=== PATIENT | female | born 1960 | race Two or more races ===

== ENCOUNTER 2023-05-27 09:21 | Outpatient (AMB) | payer OTHER, SELFPAY ==
[2023-05-27 09:34] VITALS: BP 127/98; PULSE 73; TEMP 36.5; O2SAT 96; BMI 27.3
--- NOTE | 2023-05-27 09:34 | A.OFFVIS_ITS ---
Intake Vital Signs 05/27/23 09:34 Height 5 ft 4 in Weight 159 lb 2.78 oz BMI 27.3 BP 127/98 H Blood Pressure Location Rt brachial Position Sitting Pulse 73 Pulse Source Pulse Oximeter Temp 97.7 F Temp Source Temporal Artery Scan Pulse Oximetry (%) 96 Oxygen Delivery Method Room Air Intake Visit Reasons: Hydrogenation Still Operator Required: No Allergies No Known Allergies [No Known Allergies*] Allergy (Unverified 05/27/23 09:38) Medication List - Last Reconciled 05/27/23 by Kristie Santos RN albuterol sulfate mg inhalation Q6H PRN bismuth subsalicylate (Stomach Relief) 0 tabs PO dexamethasone 8 mg PO BID docusate sodium 100 mg PO BID doxycycline monohydrate 100 mg PO BID fexofenadine 180 mg PO DAILY fluticasone propionate 50 mcg/actuation sprays intranasal folic acid 1 mg PO DAILY metronidazole 125 mg PO TID neomycin-polymyxin B-dexameth 3.5 mg/g-10,000 unit/g-0.1 % ophthalmic (eye) BEDTIME omeprazole 20 mg PO DAILY omeprazole 40 mg PO BID osimertinib (Tagrisso) 0 mg PO oxycodone 10 - 20 mg PO Q4H PRN prednisone 50 mg PO DAILY pregabalin 75 mg PO BID prochlorperazine maleate 10 mg PO Q6H PRN zolpidem 5 mg PO BEDTIME PRN HPI HPI Comments History of Present Illness Details The patient presents today with her daughter for evaluation of widespread pains. I had seen her at [facility] more than 3 or 4 years ago. She had also seen Dr. Tanner at [facility] before me. We were treating her for some fibromyalgia and cervical osteoarthritis. As far back as 2018 she was on twice a day 5 mg Percocet, Flexeril and nabumetone. She reports continued widespread pains involving muscles, bones and joints. She says the ankles are occasionally swollen. She has been labeled as having gout and is on some low-dose allopurinol, 100 mg daily. It is unclear whether that really helped her ankle pain and foot pain. The She describes her skin in the legs is feeling like someone is cutting it. In the past she had been on Cymbalta as well but that was apparently discontinued. In [place] of 2021 she underwent a left upper lobectomy for adenocarcinoma of the lung. She says since then she has been on osimeretinib. Recently that was held. The patient says it was held because it was causing a skin rash but the daughter thinks it was because they thought it might be causing her widespread pain. Her chart lists multiple medications that she does not recognize including pregabalin, omeprazole, doxycycline, dexamethasone, and pregabalin. She seems to recall being on gabapentin but it made her too groggy. It is unclear what happened to her antidepressant treatment in the past. [facility] Medical History Anxiety and depression Cervical spinal cord compression Fibromyalgia Surgical History Hx of abdominal hysterectomy Hx of breast implant Family History Brother Gout Arthritis Sister Arthritis Maternal Grandfather Family history of brain cancer Maternal Grandmother Family history of stomach cancer Other Family history of breast cancer Social History Alcohol intake: current Alcohol intake frequency: holidays/special occasions only Patient Tobacco Use Status: Never used Tobacco Review of Systems Const Details: Low energy, she describes days when she really gets at of bed because of fatigue and pain. Negative for appetite change, weight change, fever, chills, malaise Eyes Details: Negative for vision change, dry eyes,headaches and dizziness ENT Details: Negative for hearing change, tinnitus, oral ulcer, nose bleeds and oral dryness. Card Details: Intermittent ankle and foot swelling. Negative chest pain, palpitations and syncope Resp Details: Negative for SOB, cough and wheezing GI Details: Negative indigestion/heartburn, nausea, abdominal pain, bowel changes, diarrhea, constipation and bloody stool. Skin/Breast Details: Itchy rash on the upper arms; she thinks it might have been present for a year or 2.. She is putting something topical on the area but I am not sure what it is. She does see Dermatology occasionally for this. Negative for itching, rash, hives, Raynaud's symptoms, sun sensitivity, and skin cancer Neuro Details: She thinks there may be some numbness in the feet. She tends to fall a lot she says. She was told to use a cane but usually avoids it. She describes periods of feeling confused and groggy. In the past she thought that might be related to her taking gabapentin. She thinks she stopped it at this point. Negative for epilepsy, palsy, stroke, changes in speech, tingling Psych Details: Concerned about her ongoing pain. Admits to some anxiety. Endo Details: Negative for polyuria and polydypsia Bayron/Lymph Details: Negative for excessive bruising or bleeding. Physical Exam Vital Signs: Last Vital Signs Temp 97.7 F 05/27/23 09:34 Pulse 73 05/27/23 09:34 BP 127/98 H 05/27/23 09:34 Pulse Ox 96 05/27/23 09:34 Oxygen Delivery Method Room Air 05/27/23 09:34 BMI result Body Mass Index 27.3 APPEARANCE: Patient in no acute distress EYES no redness, pupils equal and reactive to light, eyelids normal. No temporal artery tenderness, redness or swelling. EARS: External ear normal, canal clear and tympanic membrane normal. NOSE/SINUS: Airflow through both nares, no nasal discharge, no bleeding THROAT: Oral mucosa moist, no ulcerations NECK: No thyromegaly or masses, no adenopathy, trachea midline. HEART: Regulrar rhythm, S1-S2 heard, no murmurs, rubs or gallops. LUNG: Clear to percussion and auscultation ABD: Normal bowel sounds, no organomegaly, masses or tenderness. EXTREMITIES: Trace ankle edema. No calf tenderness, normal peripheral pulses. NEURO: Oriented and alert x3. No focal weakness. Reflexes symmetric. She has a very slow unsteady gait.. SKIN: Some thickening and irritation of the skin in the upper arm regions. I do not see skin lesions elsewhere. No objective signs of Raynaud's phenomena. JOINT EXAM:.?? Cervical Spine:.? Full range of motion with pain at the extremes of normal range of motion. There is [id number] cervical muscle tenderness. Thoracic Spine:.? No scoliosis.? No tenderness on palpation. Lumbar Spine:.? Alignment normal.? Pain with flexion at 60 degrees with spinal and paraspinal muscle tenderness. Chest Wall:.? No tenderness, swelling, increased warmth or erythema. Hands:.? Normal pain-free range of motion with diffuse tenderness across the fingers, palm and dorsum of the hands. There is some slight bony enlargement at the 2nd, 3rd, and 5th PIP on the right and the 1st and 5th PIP on the left. Those areas are not any more tender than the interphalangeal spaces or there is no enlargement redness or swelling. There is no thenar atrophy or sensory loss.. Wrists:.? Mild pain with 75 degrees flexion or extension. There is some mild dorsal tenderness without for swelling, increased warmth or erythema. Elbows:. Normal pain-free range of motion without tenderness, swelling, increased warmth or erythema. Shoulders:.?? Mild pain with abduction 120 degrees or with attempts at internal or external rotation. Mild anterior, superior, and some subacromial tenderness. No adenopathy. No weakness, swelling, increased warmth or erythema. Hips:.? Full range of motion with some lumbar pain with extremes of normal range of motion. No groin pain with motion. Hip bursa:.? No tenderness. Knees:.??Mild pain with more than 45 degrees flexion extension. There is mild patellofemoral crepitus rather diffuse anterior, lateral, and medial tenderness. No redness or effusion. No crepitus. Ankles:.? Normal pain-free range of motion without tenderness, swelling, increased warmth or erythema. Feet:.? Normal pain-free range of motion with diffuse tenderness over the instep and MTP joints. There may be some mild bony enlargement at the 1st MTP joints but no soft tissue swelling, increased warmth or erythema. Tender points: Mild to moderate tenderness to digital palpation at the occiput, trapezius, second rib, lateral epicondyle, knees, greater trochanter and gluteal area bilaterally. ? Results Reviewed Results Reviewed: Lab work from [facility]: November 2022: ESR 6, uric acid 6.8 04/13/2023: Hemoglobin 13.8, white count 7.2, creatinine 0.84, transaminases normal, 25- hydroxyvitamin D 23 [facility] Result Report Patient: Ny Gonsales Date of Service: 11/10/22 ? ? Patient Gender: Female Ordering Provider: Jose Moses : 1960 ? ? ? Final X-RAY EXAM OF LOWER SPINE WITH OBLIQUES Exam Date: 11/10/2022 12:07 PM Ordering Diagnosis: Chronic bilateral low back pain with bilateral sciatica A ? Lumbosacral spine, 4 views. History low back pain. ? Compared with previous examination from 06/29/2020. There are discogenic degenerative changes at T12-L1 level which appear to be stable. There are small discogenic spurs at L3-4 and L4-5 levels. There are hypertrophic changes in the facet joints from L3-4 to L5-S1. No fractures, dislocations or destructive lesions. Incidental findings of constipation. ? CONCLUSIONS: Stable multilevel bony and discs degenerative changes. Constipation. ? Reading Radiologist: Electronically signed by: Narda Rosales MD [facility] Imaging Result Report Patient: Ny Gonsales Date of Service: 06/29/20 ? ? Patient Gender: Female Ordering Provider: Edmond Rider : 1960 ? ? ? Final X-RAY EXAM OF NECK SPINE, 4+ VIEWS Exam Date: 06/29/2020 12:46 PM Ordering Diagnosis: Numbness and tingling of left upper and lower extremity ? History: Numbness and tingling of the upper extremities. Chronic neck pain. ? Cervical spine, 4 views: There has been an anterior fusion at C6-7 with anterior plate and screw fixation and complete ankylosis of the disc space. There is no evidence of complication. There is mild disc degeneration at C4-C6. There is uncal joint spurring at C4-5 bilaterally with moderate neuroforaminal narrowing right greater than left. There is milder narrowing at C6-7 on the right. Alignment is normal. The facets are intact. Soft tissues are unremarkable. ? IMPRESSION IMPRESSION: Postoperative and degenerative changes as above. ? Reading Radiologist: Electronically signed by: José Miguel Thornton MD Assessment & Plan Assessment & Plan (1) Fibromyalgia: Code(s): M79.7 - Fibromyalgia (2) Cervical osteoarthritis: Code(s): M47.812 - Spondylosis without myelopathy or radiculopathy, cervical region (3) Osteoarthritis of lumbar spine: Code(s): M47.816 - Spondylosis without myelopathy or radiculopathy, lumbar region Plan The patient has a long history of widespread musculoskeletal pain. Once again on exam I do not see signs of an active inflammatory arthritis. She is very deconditioned and has much fatigue. She has a nonspecific skin rash on the arms that looks relatively noninflammatory but she has been on probably some topical treatment if not systemic steroids for that. I told her I thought her pains were predominantly from fibromyalgia. She was not too accepting of that diagnosis. She wants to know if there is something else going on. I told her the chronicity of her pain and lack of inflammatory findings on exam would be against it being an inflammatory condition. There are some mild changes of osteoarthritis in the cervical and lumbar spine regions which don't explain her widespread pain. Overall she seems to have psychomotor retardation and might do better with antidepressant therapy but I think that needs to be administered through her primary doctor who may have better knowledge of her medication list to avoid potential interactions. It sounds as if she did try gabapentin in the past but it was too sedating so I do not think that is an option. Markell is listed on her list year but she does not recall taking it or having received it. It is unclear whether she had any response to prednisone or dexamethasone which is listed on her medication list because she does not know exactly when she took them. She questions whether an increase in dose in the oxycodone might be helpful for her as previous dose increases usually were. I told her that we do not usually treat fibromyalgia with narcotics anymore as it does not seem to be effective as patients developed rapid tolerance to opiods. Her graphic description of her lower extremity pains makes me wonder if she as a neuropathy. She was seeing neurology years ago but I do not have their notes. I will send a copy of her visit today to her treating oncologist and primary doctor. Today's visit took 34 minutes. Orders: Referrals Neurology Referral M79.7 - Fibromyalgia Coding Level of Care Code Est Pt Level 4 (00476) Diagnoses Fibromyalgia M79.7 Cervical osteoarthritis M47.812 Osteoarthritis of lumbar spine M47.816
== END 2023-05-27 10:30 | disposition home or self-care (01) ==
PROVIDERS: Visit Provider Internal Medicine Rheumatology
DX: M79.7 Fibromyalgia (principal); M47.812 Spondylosis without myelopathy or radiculopathy, cervical region; M47.816 Spondylosis without myelopathy or radiculopathy, lumbar region
CPT/HCPCS: 99214

== ENCOUNTER → 2023-05-27 09:21 | Outpatient (BNVA) | payer OTHER, SELFPAY | PROVIDERS: Visit Provider Internal Medicine Rheumatology | DX: M79.7 Fibromyalgia (principal); M47.812 Spondylosis without myelopathy or radiculopathy, cervical region; M47.816 Spondylosis without myelopathy or radiculopathy, lumbar region | CPT/HCPCS: 99212 ==

== ENCOUNTER 2024-02-04 15:49 | Emergency (ER) | payer OTHER, SELFPAY ==
--- NOTE | ~2024-02-04 | CT_ITS ---
EXAMINATION: CT SOFT TISSUE NECK WITH CONTRAST CLINICAL INFORMATION: Right neck swelling. COMPARISON: None available. TECHNIQUE: Following intravenous administration of 65 mL of Omnipaque 350 contrast, helical imaging was performed in the axial plane with generation of coronal and sagittal reformatted images. This CT examination was performed using dose optimization techniques as appropriate, variously including the following: *Automated exposure control. *Adjustment of mA and/or kV according to patient size (this includes techniques or standardized protocols for targeted exams where dose is matched to indication/reason for exam; i.e. extremities or head). *Use of iterative reconstruction technique. DLP: 490 mGy-cm FINDINGS: The thyroid gland is diffusely heterogeneous and multinodular with a dominant nodule in the left thyroid lobe measuring up to 2.5 cm in size. There is no tracheal compression or deviation. No pathologically enlarged cervical lymph nodes are identified. The submandibular and parotid glands are homogeneous in attenuation. The oral cavity appears normal. There is apposition of the soft palate to the posterior nasopharyngeal wall which limits assessment. The soft palate appears somewhat thickened and mildly edematous on sagittal reformatted imaging. Otherwise, no suspicious soft tissue enhancement is otherwise seen within the pharyngeal mucosal space. The carotid sheath vasculature opacifies normally. No abnormal retropharyngeal fluid collection is seen. No acute osseous abnormality is visible. The patient is status post anterior cervical discectomy and fusion with a solid arthrodesis at the C6-C7 level. There is slight straightening and reversal of the normal cervical lordosis. Moderate spondylitic changes are visible at the C4-C5 level with significant left foraminal encroachment. Severe right-sided facet arthropathy noted at the C2-C3 level. Bilateral breast prostheses are partially visualized. No periapical lucencies are seen in the dentition. There are [id number] degenerative changes of the acromioclavicular joints. The patient is status post bilateral lens extractions. The paranasal sinuses and mastoid air cells are well aerated. The temporomandibular joints are normal. The imaged portions of the brain demonstrate no acute abnormality. Nonspecific questionable circumferential esophageal wall thickening is visible, possibly artifactually due to underdistention. There are mild subsegmental atelectatic changes in the lungs. There are two ground-glass nodular foci in the right upper lobe, each measuring 0.4 cm in size. An additional 0.6 cm ground-glass nodular lesion is visible at the left lung apex as well. CT/CT soft tissue neck w IV con IMPRESSION: Perceived uniform thickening and mild submucosal edematous changes in the soft palate, which may alternatively be artifactual in nature, given apposition to the posterior pharyngeal wall. Recommend correlation with direct visual inspection. No cervical adenopathy. Enlarged multinodular thyroid gland with a dominant heterogeneous nodular lesion in the left thyroid lobe measuring up to 2.5 cm in diameter. A non-emergent, dedicated follow-up thyroid ultrasound study is recommended for further evaluation. Questionable mild circumferential esophageal wall thickening which may be due to underdistention. Correlate for any referable symptomatology. Scattered ground-glass nodules in the lungs as described, measuring between 0.4-0.6 cm in size. Findings may be infectious/inflammatory in nature. Recommend clinical correlation. A dedicated CT scan of the chest is recommended in 6-12 weeks for follow-up and to assess for interval changes. Imaging findings reported to Dr. Sloan at 7:10 PM on 02/04/2024.
--- NOTE | ~2024-02-04 | US_ITS ---
EXAMINATION: US ABDOMEN LIMITED CLINICAL INFORMATION: Abdomen pain. Vomiting. The patient reportedly ate 45 minutes prior to the exam COMPARISON: None available. TECHNIQUE: Imaging of the gallbladder and common duct only requested by the ordering provider FINDINGS: PANCREAS: The region of the pancreas was not examined LIVER: The liver is only partially included on imaging of the gallbladder and extrahepatic biliary tree region no large abnormality demonstrated There is no intrahepatic biliary duct dilatation seen. GALLBLADDER: The gallbladder is contracted. This accounts for mild apparent wall thickening. No shadowing calculus. No pericholecystic fluid. There is no reported tenderness to transducer pressure over the gallbladder COMMON BILE DUCT: Normal in caliber measuring 0.5 cm in diameter. RIGHT KIDNEY: The right kidney was not examined FREE FLUID: No free fluid demonstrated US/US abdomen limited IMPRESSION: Limited assessment of the gallbladder and extrahepatic biliary tree The gallbladder is contracted. No definite cholelithiasis or pericholecystic fluid. No biliary dilation
[2024-02-04 16:05] VITALS: BP 168/100; PULSE 84; RESP 16; TEMP 36.6; O2SAT 100; BMI 28.1
--- NOTE | 2024-02-04 16:06 | ED_ITS ---
HPI - General Adult General Chief complaint: Abdominal Pain Stated complaint: vomiting,abd pain chemo pt Time Seen by Provider: 02/04/24 16:18 Source: patient, RN notes reviewed and old records reviewed Mode of arrival: ambulatory Limitations: no limitations History of Present Illness HPI narrative: 63-year-old female with past medical history significant for stage IV lung cancer being followed by Dr. Guerra at [facility] presents for evaluation of 2 separate complaints. Patient reports mid to right upper abdominal pain with nausea and vomiting for the last 5 weeks She also endorses right-sided neck swelling for the last 5 years Patient states that she has tried to discuss with the primary doctor patternmaker plaster regarding these issues but ?he just tells me there is nothing that can be done. ? Patient reports that she is not happy with the care she is receiving from her oncologist in his seeking a 2nd opinion in [place] Patient reports 2 days ago she had a biopsy of the left side of her neck despite complaining of right-sided neck swelling She reports the area of the right is painful and swollen but not as swollen as it has been in the past The patient is on oral chemotherapy Erlotinib for the last 6 weeks. Related Data Home Medications ?Medication ?Instructions ?Recorded ?Confirmed albuterol sulfate 2.5 mg/3 mL mg inhalation Q6H PRN wheezing 08/22/22 05/27/23 (0.083 %) solution for nebulization bismuth subsalicylate 262 mg 0 tab PO 08/22/22 05/27/23 tablet (Stomach Relief) dexamethasone 4 mg tablet 8 mg PO BID 08/22/22 05/27/23 docusate sodium 100 mg capsule 100 mg PO BID 08/22/22 05/27/23 doxycycline monohydrate 100 mg 100 mg PO BID 08/22/22 05/27/23 tablet fexofenadine 180 mg tablet 180 mg PO DAILY 08/22/22 05/27/23 fluticasone propionate 50 spray intranasal 08/22/22 05/27/23 mcg/actuation nasal spray,suspension folic acid 1 mg tablet 1 mg PO DAILY 08/22/22 05/27/23 metronidazole 250 mg tablet 125 mg PO TID 08/22/22 05/27/23 neomycin 3.5 mg/g-polymyxin B ophthalmic (eye) BEDTIME 08/22/22 05/27/23 10,000 unit/g-dexameth 0.1 % eye oint omeprazole 20 mg capsule,delayed 20 mg PO DAILY 08/22/22 05/27/23 release omeprazole 40 mg capsule,delayed 40 mg PO BID 08/22/22 05/27/23 release osimertinib 40 mg tablet (Tagrisso) 0 mg PO 08/22/22 05/27/23 oxycodone 10 mg tablet 10 - 20 mg PO Q4H PRN pain 08/22/22 05/27/23 pregabalin 75 mg capsule 75 mg PO BID 08/22/22 05/27/23 prochlorperazine maleate 10 mg 10 mg PO Q6H PRN 08/22/22 05/27/23 tablet zolpidem 5 mg tablet 5 mg PO BEDTIME PRN 08/22/22 05/27/23 Previous Rx's ?Medication ?Instructions ?Recorded prednisone 50 mg tablet 50 mg PO DAILY #5 tabs 08/29/22 aluminum-mag hydroxide-simethicone 10 ml PO QID PRN indigestion 02/04/24 200 mg-200 mg-20 mg/5 mL oral susp #3,000 mL (Maalox Advanced) metoclopramide HCl 10 mg tablet 10 mg PO Q6H PRN nausea and 02/04/24 (Reglan) vomiting #20 tabs Allergies Allergy/AdvReac Type Severity Reaction Status Date / Time No Known Allergies Allergy Verified 02/04/24 16:06 [No Known Allergies*] Review of Systems 2 Constitutional: Constitutional: Denies body ache(s), Denies chills, Denies fever(s) and Denies headache(s) ENT: Denies headache(s), Denies sore throat and Reports throat swelling C omments: Reports right-sided neck swelling Cardiovascular: Cardiovascular: Denies dyspnea Respiratory: Respiratory: Denies cough and Denies dyspnea Gastrointestinal: Gastrointestinal: Reports abdominal pain, Reports nausea and Reports vomiting Musculoskeletal: Musculoskeletal: Denies back pain Integumentary/Breasts: Skin/Breast: Denies rash Neurologic: Denies headache(s) Allergic/Immunologic: Allergic/Immunologic: Reports throat swelling PMFSH Past Medical History Medical History Anxiety and depression Cervical spinal cord compression Fibromyalgia Surgical History Hx of abdominal hysterectomy Hx of breast implant Family History Family History Brother Gout Arthritis Sister Arthritis Maternal Grandfather Family history of brain cancer Maternal Grandmother Family history of stomach cancer Other Family history of breast cancer Social History Social History Alcohol intake: current Alcohol intake frequency: holidays/special occasions only Patient Tobacco Use Status: Never used Tobacco Smoked in Last 30 Days: No Use of substances other than those prescribed or required for medical reasons: No Advance Directives: No Advance Directives Information Provided: No Physical Exam ED Vital Signs: Vital Signs - 24 hr 02/04/24 16:05 02/04/24 16:58 02/04/24 18:00 Temperature 98 F 97.7 F Pulse Rate 84 82 84 Respiratory Rate 16 18 16 Blood Pressure 168/100 H 134/83 144/74 H Pulse Oximetry 100 97 97 Oxygen Delivery Method Room Air Room Air Room Air 02/04/24 19:48 Temperature 99.0 F Pulse Rate 74 Respiratory Rate 16 Blood Pressure 122/72 Pulse Oximetry 97 Oxygen Delivery Method Room Air BMI result Body Mass Index 28.1 Const General: healthy appearing, comfortable, no acute distress, alert and awake Nutritional Appearance: well nourished Orientation/consciousness: patient oriented x3 HENMT Head: Yes normocephalic and Yes atraumatic Throat: Yes posterior oropharynx normal Eyes Eyelids: Yes eyelids normal Conjunctivae: conjunctivae normal Sclerae: sclerae normal Corneas: corneas normal Pupils: Equal, round and reactive pupils present EOM: EOMs intact bilaterally Neck Other: Patient has an area of ecchymosis from recent biopsy in the left anterior neck. There is a previous surgical scar in the right anterior neck. There is may be slight right anterior neck swelling without obvious palpable mass. No overlying skin changes to this area Neck: Yes full ROM Resp Effort & Inspection: normal respiratory effort, able to speak in complete sentences and not labored GI Inspection: No distended Palpation (GI): Soft to palpation, not firm and not rigid Skin General skin exam: elasticity normal Neuro General: patient oriented x3 Cranial nerves: Yes Equal, round and reactive pupils present and Yes Bilaterally intact EOM present Cognition (Neuro): normal cognition Extrem Other: Moving all extremities well without any obvious deformities Course Course Course Narrative: This is an RME: Additional HPI, ROS, PE not included below will be deferred to primary provider. 63 yo f hx of stave IV lung cancer on PO chemo therapy followed by [facility] s/p lobectomy of lung presents with nausea, vomiting, abdominal pain, diarrhea for 5 weeks worsening. Biopsy on neck biopsy l side and having now right sided neck pain. Denies chest pain, shortness of breath, dizziness, fever. Patient looks unwell, vomiting in triage will make charge aware Reevaluation(s) Reevaluation #1: Patient had 2+ bacteria in her urine, she denies any UTI symptoms, will await culture as this may be a contaminant. Time: 21:16 Medications Administered Discontinued Medications Generic Name Dose Route Start Last Admin Trade Name Freq PRN Reason Stop Dose Admin Diphenhydramine HCl 25 mg 02/04/24 16:13 02/04/24 16:55 Diphenhydramine Hcl 50 Mg/Ml Vial IVPUSH 02/04/24 16:14 25 mg ONCE ONE Administration Sodium Chloride 1,000 mls @ 999 mls/hr 02/04/24 16:30 02/04/24 16:55 Ns IV 02/04/24 17:30 999 mls/hr .Q1H1M KIKA Administration Iohexol 100 ml 02/04/24 18:28 02/04/24 18:28 Iohexol 350 Mg/Ml 100 Ml Infus..Btl IV 02/04/24 18:29 60 ml ONCE ONE Administration Metoclopramide HCl 10 mg 02/04/24 16:13 02/04/24 16:55 Metoclopramide Hcl 10 Mg/2 Ml Vial IVPUSH 02/04/24 16:14 10 mg ONCE ONE Administration Ondansetron HCl 4 mg 02/04/24 16:29 02/04/24 16:55 Ondansetron Hcl 4 Mg/2 Ml Vial IVPUSH 02/04/24 16:30 4 mg ONCE ONE Administration Medical Decision Making Medical Decision Making MDM Narrative: 63-year-old female with past medical history significant for stage IV breast cancer, fibromyalgia, GERD presents for evaluation of right-sided neck swelling and abdominal pain. Her symptoms have been somewhat chronic in nature. The abdominal pain for 5 weeks. I believes his symptoms are most likely related to GERD/gastritis as she was taken off was all due to complications/interactions with her, therapy medication. We will get an ultrasound of the gallbladder to evaluate for cholecystitis but I feel this is less likely as the symptoms have been present for 5 weeks. The patient has had right-sided neck swelling for 5 years, this may be related to adenopathy versus soft tissue mass will get a CT scan of the neck to better evaluate. There is no evidence of airway compromise at this time. Differential Diagnosis Differential Diagnoses: The differential diagnosis associated with the presentation includes Right-sided neck swelling Lung cancer Adenopathy Soft tissue mass Gastritis Peptic ulcer disease Cholelithiasis Acute cholecystitis Lab Data 02/04/24 16:56 02/04/24 16:56 Labs: Lab Results 02/04/24 Range/Units 16:56 WBC 9.3 (4.8-10.8) X10*3/uL RBC 4.87 (4.20-5.50) X10*6/uL Hgb 14.4 (12.0-16.0) g/dl Hct 42.9 (37.0-47.0) % MCV 88.1 (80.0-98.0) fL MCH 29.6 (27.0-33.0) pg MCHC 33.6 (31.0-35.0) g/dl RDW 14.2 (11.0-16.0) % Plt Count 236 (160-400) X10*3/uL MPV 10.6 (9.4-12.3) fL Immature Gran % (Auto) 0.1 (0.0-0.4) % Neut % (Auto) 59.5 (45-73) % Lymph % (Auto) 30.4 (20-40) % [place] % (Auto) 7.9 (2-11) % Eos % (Auto) 1.6 (0-4) % Baso % (Auto) 0.5 (0-2) % Lymph # (Auto) 2.8 (1.2-4.9) X10*3/uL [place] # (Auto) 0.7 (0.1-1.2) X10*3/uL Eos # (Auto) 0.2 (0.0-0.4) X10*3/uL Baso # (Auto) 0.1 (0.0-0.2) X10*3/uL Abs Immat Gran (auto) 0.01 (0.00-0.03) X10*3/uL Absolute Neuts (auto) 5.5 (2.0-8.3) x10*3/uL Absolute Nucleated RBC 0.000 (0.0-0.012) X10*3/uL Nucleated RBC % (auto) 0.0 (0.0-0.2) /100WBC Sodium 142 (135-145) mmol/L Potassium 3.7 (3.3-5.1) mmol/L Chloride 103 (96-108) mmol/L Carbon Dioxide 32 H (22-29) mmol/L Anion Gap 11 L (12-20) BUN 14 (9-16) mg/dL Creatinine 0.97 (0.5-1.4) mg/dL Estim Creat Clear Calc 57.0 Estimated GFR 58 Random Glucose 117 H (60-115) mg/dL Calcium 9.4 (8.4-10.2) mg/dL Magnesium 2.2 (1.6-2.6) mg/dL Total Bilirubin 0.4 (0.0-1.0) mg/dL AST 16 (5-31) U/L ALT 25 (0-31) U/L Alkaline Phosphatase 90 (39-117) U/L Total Protein 7.0 (6.5-8.0) g/dL Albumin 3.9 (3.5-5.0) g/dL Lipase 62 (8-78) U/L Urine Color Yellow Urine Appearance Cloudy Urine pH >= 9.0 (5.0-9.0) Ur Specific [place] 1.020 (1.005-1.025) Urine Protein Trace (Neg-Trace) mg/dL Urine Glucose (UA) Negative (Negative) mg/dL Urine Ketones Trace (Negative) mg/dL Urine Blood Negative (Negative) Urine Nitrite Negative (Negative) Ur Leukocyte Esterase Trace H (Negative) Urine RBC 0-2 (0-2) /HPF Urine WBC 0-5 (0-5) /HPF Ur Squamous Epith Cells 0-2 (0-2) /HPF Urine Bacteria 2+ (None Seen) Hyaline Casts 3-5 (0-2) /LPF Discharge Plan Discharge Clinical Impression: Abdominal pain, Neck swelling, Lung cancer Patient Disposition: Home, Self-Care Instructions: Gastroesophageal Reflux Disease (ED) Additional Instructions: Your workup in the ER today was reassuring. There was no definitive mass or swollen lymph nodes in the neck. You do have a thyroid nodule which would require an outpatient ultrasound by your primary doctor You had some nodules in your lungs which are not new Your chest pain is most likely related to gastritis. You may take Maalox as needed for abdominal pain. Use Reglan as needed for nausea/vomiting Follow-up with your primary doctor and your oncologist Prescriptions: New alum-mag hydroxide-simeth [Maalox Advanced] 200-200-20 mg/5 mL suspension 10 ml PO QID PRN (Reason: indigestion) Qty: 3000 0RF Rx Instructions: administer between meals and at bedtime metoclopramide HCl [Reglan] 10 mg tablet 10 mg PO Q6H PRN (Reason: nausea and vomiting) Qty: 20 0RF No Action doxycycline monohydrate 100 mg tablet 100 mg PO BID fexofenadine 180 mg tablet 180 mg PO DAILY docusate sodium 100 mg capsule 100 mg PO BID folic acid 1 mg tablet 1 mg PO DAILY Tagrisso 40 mg tablet 0 mg PO neomycin-polymyxin B-dexameth 3.5 mg/g-10,000 unit/g-0.1 % ointment ophthalmic (eye) BEDTIME oxycodone 10 mg tablet 10 - 20 mg PO Q4H PRN (Reason: pain) prochlorperazine maleate 10 mg tablet 10 mg PO Q6H PRN zolpidem 5 mg tablet 5 mg PO BEDTIME PRN dexamethasone 4 mg tablet 8 mg PO BID omeprazole 20 mg capsule,delayed release(DR/EC) 20 mg PO DAILY Stomach Relief 262 mg tablet 0 tab PO pregabalin 75 mg capsule 75 mg PO BID albuterol sulfate 2.5 mg /3 mL (0.083 %) solution for nebulization inhalation Q6H PRN (Reason: wheezing) fluticasone propionate 50 mcg/actuation spray,suspension intranasal omeprazole 40 mg capsule,delayed release(DR/EC) 40 mg PO BID metronidazole 250 mg tablet 125 mg PO TID prednisone 50 mg tablet 50 mg PO DAILY Qty: 5 0RF Print Language: Albanian
[2024-02-04] MEDS: 0.9 % Sodium Chloride 1,000 ML 999 ML IV (16:55)
[2024-02-04] MEDS: ondansetron HCL 4 MG/2 ML VIAL IVPUSH (16:55)
[2024-02-04] MEDS: diphenhydrAMINE HCL 50 MG/ML VIAL 25 MG IVPUSH (16:55)
[2024-02-04] MEDS: Metoclopramide HCl 10 MG/2 ML VIAL IVPUSH (16:55)
[2024-02-04 16:58] VITALS: BP 134/83; PULSE 82; RESP 18; O2SAT 97
[2024-02-04 17:06] LABS: MANUAL DIFF FLAG NO
[2024-02-04 17:12] LABS: Appearance Urine Cloudy; Color Urine Yellow; Glucose Urine UA Negative (Negative); Leukocyte Esterase Urine Trace (Negative); Nitrite Urine Negative (Negative); PH >= 9.0 (5.0-9.0); UMIC TRIGGER UACC YES; Urine Blood Negative (Negative); Urine Ketones Trace mg/dL (Negative); Urine Protein Trace mg/dL (Neg-Trace)
[2024-02-04 17:19] LABS: Basophils Absolute Auto 0.1 X10*3/uL (0.0-0.2); Basophils Percent Auto 0.5 % (0-2); Eosinophils Absolute Auto 0.2 X10*3/uL (0.0-0.4); Eosinophils Percent Auto 1.6 % (0-4); Hematocrit 42.9 % (37.0-47.0); Hemoglobin 14.4 g/dl (12.0-16.0); Imm Gran Abs Auto 0.01 X10*3/uL (0.00-0.03); Imm Gran Pct Auto 0.1 % (0.0-0.4); Lymphocytes Absolute Auto 2.8 X10*3/uL (1.2-4.9); Lymphocytes Percent Auto 30.4 % (20-40); Mean Corpuscular HGB Conc 33.6 g/dl (31.0-35.0); Mean Corpuscular Hemoglobin 29.6 pg (27.0-33.0); Mean Corpuscular Volume 88.1 fL (80.0-98.0); Mean Platelet Volume 10.6 fL (9.4-12.3); Monocytes Absolute Auto 0.7 X10*3/uL (0.1-1.2); Monocytes Percent Auto 7.9 % (2-11); Neutrophils Absolute Auto 5.5 x10*3/uL (2.0-8.3); Neutrophils Percent Auto 59.5 % (45-73); Platelet Count 236 X10*3/uL (160-400); Red Blood Count 4.87 X10*6/uL (4.20-5.50); Red Cell Distribution Width 14.2 % (11.0-16.0); White Blood Count 9.3 X10*3/uL (4.8-10.8)
[2024-02-04 17:25] LABS: Alanine Aminotransferase 25 U/L (0-31); Albumin Level 3.9 g/dL (3.5-5.0); Alkaline Phosphatase 90 U/L (39-117); Anion Gap 11 (12-20); Aspartate Amino Transferase 16 U/L (5-31); Bilirubin Total 0.4 mg/dL (0.0-1.0); Blood Urea Nitrogen 14 mg/dL (9-16); Calcium 9.4 mg/dL (8.4-10.2); Carbon Dioxide 32 mmol/L (22-29); Chloride 103 mmol/L (96-108); Estimated Glomerular Filt Rate 58; Glucose Random 117 mg/dL (60-115); Lipase 62 U/L (8-78); Magnesium 2.2 mg/dL (1.6-2.6); Potassium 3.7 mmol/L (3.3-5.1); Sodium 142 mmol/L (135-145)
[2024-02-04 17:32] LABS: Bacteria Urine 2+ (None Seen); RBC Urine 0-2 /HPF (0-2); Squamous Epithelial Cell Urine 0-2 /HPF (0-2); WBC Urine 0-5 /HPF (0-5)
[2024-02-04 18:00] VITALS: BP 144/74; PULSE 84; RESP 16; TEMP 36.5; O2SAT 97
[2024-02-04] MEDS: iohexoL 350 MG/ML 100 ML INFUS..BTL IV (18:28)
[2024-02-04 19:48] VITALS: BP 122/72; PULSE 74; RESP 16; TEMP 37.2; O2SAT 97
[2024-02-04] MEDS: Ondansetron ODT 4 MG TAB.RAPDIS TRANSLINGU (21:19)
[2024-02-04] MEDS: Magnesium Hydrox/Alum Hydrox 30 ML ORAL.SUSP PO (21:19)
[2024-02-04] MEDS: Lidocaine HCl Viscous 2 % 15 ML SOLUTION MUCOUS MEM (21:19)
[2024-02-04 21:20] VITALS: BP 120/61; PULSE 80; RESP 18; O2SAT 98
[2024-02-04 21:49] VITALS: BP 120/61; PULSE 80; RESP 18; TEMP 36.8; O2SAT 98
== END 2024-02-04 21:50 | disposition home or self-care (01) ==
PROVIDERS: Physician Assistant; Emergency Provider Emergency Medicine
DX: R10.9 Unspecified abdominal pain (principal); R22.1 Localized swelling, mass and lump, neck; C34.90 Malignant neoplasm of unspecified part of unspecified bronchus or lung; Z79.899 Other long term (current) drug therapy
CPT/HCPCS: 36415; 70491; 76705; 80053; 81001; 83690; 83735; 85025; 96361; 96374; 96375; 99285; J1200; J2405; J2765; Q9967

== ENCOUNTER 2024-05-26 11:33 | Outpatient (AMB) | payer OTHER, SELFPAY ==
--- NOTE | 2024-05-26 12:11 | AM.OFFWIN_ITS ---
Intake Vital Signs 05/26/24 12:20 Height 5 ft 4 in Weight 159 lb BMI 27.3 BP 138/82 Blood Pressure Location Rt brachial Position Sitting Pulse 87 Pulse Source Pulse Oximeter Temp 98.0 F Temp Source Oral Pulse Oximetry (%) 98 Oxygen Delivery Method Room Air Intake Visit Reasons: EP UTI Intake Note: pt c/o urinary frequency and discomfort and burning , eye swelling and discharge also . Started 3 days ago Patient Tobacco Use Status: Never used Tobacco Allergies No Known Allergies [No Known Allergies*] Allergy (Verified 05/26/24 12:18) Do you need a note to return to daycare/school/sports/work: No HPI HPI Comments History of Present Illness Details Patient is a 63-year-old female with 2 complaints. Her 1st complaint is she has had 2-1/2-3 days of burning with urination, increased frequency and low back pain. She denies a history of kidney stones or fevers recently. Her 2nd complaint is she has had bilateral discharge from her eyes that is yellow. She states she is waking up and her eyes were crusted shut. She also mentions she is undergoing chemotherapy, she states she is taking pills but is unsure what the pills are. [facility] Medical History Anxiety and depression Cervical spinal cord compression Fibromyalgia Surgical History Hx of abdominal hysterectomy Hx of breast implant Family History Brother Gout Arthritis Sister Arthritis Maternal Grandfather Family history of brain cancer Maternal Grandmother Family history of stomach cancer Other Family history of breast cancer Social History Alcohol intake: current Alcohol intake frequency: holidays/special occasions only Patient Tobacco Use Status: Never used Tobacco Review of Systems Const All systems reviewed & are unremarkable except as noted in HPI and below Physical Exam Vital Signs: Last Vital Signs Temp 98.0 F 05/26/24 12:20 Pulse 87 05/26/24 12:20 BP 138/82 05/26/24 12:20 Pulse Ox 98 05/26/24 12:20 Oxygen Delivery Method Room Air 05/26/24 12:20 BMI result Body Mass Index 27.3 Const General: cooperative, healthy appearing, comfortable, no acute distress and well developed Orientation/consciousness: patient oriented x3 Limitations: no limitations HEENT Head: Yes normal to inspection Eyes Alignment and Position: alignment normal Eyelids: Yes eyelids normal Conjunctivae: conjunctival abnormal bilateral discharge purulent Neck Neck: Yes normal visual inspection and Yes full ROM Resp Effort & Inspection: normal respiratory effort and able to speak in complete se ntences Skin General skin exam: no rashes or lesions noted Neuro General: patient oriented x3 Extrem General: Yes normal to inspection Results AMB Urinalysis, Automated UA Leukoctes 70 Nadir/uL Last Edit by Killian Obrien CMA on 05/26/24 12:35 UA Nitrite Negative Last Edit by Killian Obrien CMA on 05/26/24 12:35 UA Urobilinogen 0.2 mg/dL Last Edit by Killian Obrien CMA on 05/26/24 12:35 UA Protein 0 mg/dL Last Edit by Killian Obrien CMA on 05/26/24 12:35 UA pH 6.0 Last Edit by Killian Obrien CMA on 05/26/24 12:35 UA Blood 10 Edwar/uL Last Edit by Killian Obrien CMA on 05/26/24 12:35 UA Specific [place] 1.015 Last Edit by Killian Obrien CMA on 05/26/24 12:35 UA Ketone Negative Last Edit by Killian Obrien CMA on 05/26/24 12:35 UA Bilirubin 0 mg/dL Last Edit by Killian Obrien CMA on 05/26/24 12:35 UA Glucose 0 mg/dL Last Edit by Killian Obrien CMA on 05/26/24 12:35 Results Reviewed Results Reviewed: Laboratory Last Values Urine pH (Auto) 6.0 05/26/24 12:34 Specific [place] (Auto) 1.015 05/26/24 12:34 Urine Protein (Auto) 0 mg/dL 05/26/24 12:34 Glucose (UA)(Auto) 0 mg/dL 05/26/24 12:34 Urine Ketones (Auto) Negative 05/26/24 12:34 Urine Blood (Auto) 10 Edwar/uL 05/26/24 12:34 Urine Nitrite (Auto) Negative 05/26/24 12:34 Urine Bilirubin (Auto) 0 mg/dL 05/26/24 12:34 Urine Urobilinogen (Auto) 0.2 mg/dL 05/26/24 12:34 Leukocyte Esterase (Auto) 70 Nadir/uL 05/26/24 12:34 Assessment & Plan Assessment & Plan (1) UTI (urinary tract infection): Code(s): N39.0 - Urinary tract infection, site not specified Qualifiers: Urinary tract infection type: acute cystitis Hematuria presence: with hematuria Qualified Code(s): N30.01 - Acute cystitis with hematuria Plan: AU + leuks and blood. Sent prescription for antibiotic, did caution patient she should call her oncologist and let them know she has these 2 infections so they can follow and see her if needed. (2) Bacterial conjunctivitis of both eyes: Code(s): H10.9 - Unspecified conjunctivitis; B96.89 - Other specified bacterial agents as the cause of diseases classified elsewhere Plan: Sent prescription for erythromycin ointment Plan See above Orders: Orders AMB Urinalysis Automated Today Z13.9 - Encounter for screening, unspecified Medications: New erythromycin 0.5 inches ophthalmic (eye) QID 3.5 grams 0RF cefuroxime axetil 500 mg PO Q12H 10 tabs 0RF Coding Level of Care Code New Pt Level 3 (59294) Diagnoses Acute cystitis with hematuria N30.01 Urinary tract infection type: acute cystitis Hematuria presence: with hematuria Bacterial conjunctivitis of both eyes H10.9; B96.89
[2024-05-26 12:20] VITALS: BP 138/82; PULSE 87; TEMP 36.7; O2SAT 98; BMI 27.3
== END 2024-05-26 13:12 | disposition home or self-care (01) ==
PROVIDERS: Visit Provider Physician Assistant
DX: N30.01 Acute cystitis with hematuria (principal); H10.9 Unspecified conjunctivitis; B96.89 Other specified bacterial agents as the cause of diseases classified elsewhere; Z13.9 Encounter for screening, unspecified
CPT/HCPCS: 81003; 99203

== ENCOUNTER 2024-11-28 09:45 | Outpatient (AMB) | payer OTHER, SELFPAY ==
--- NOTE | 2024-11-28 10:49 | MHC.OFFWIV ---
Intake Vital Signs 11/28/24 10:58 Weight 152 lb BP 130/90 H Blood Pressure Location Rt brachial Position Sitting Pulse 70 Pulse Source Pulse Oximeter Pulse Oximetry (%) 98 Oxygen Delivery Method Room Air Intake Visit Reasons: EP Hemorrhoid fistula?? Intake Note: Patient here for hemorrhoid that has been present for a couple of months and not improving. Patient Tobacco Use Status: Never used Tobacco Allergies No Known Allergies [No Known Allergies*] Allergy (Verified 11/28/24 10:59) Do you need a note to return to daycare/school/sports/work: No HPI HPI Comments History of Present Illness Details 63 y/o female patient who presents to the walk in clinic with c/o very painful external hemorrhoids. Had h/o Hemorrhoidectomy with fistula repair in the past, currently in the care with GI specialist. She is waiting to have a Colonoscopy in December 2024. [facility] Medical History (Updated 11/28/24 @ 11:20 by Jackie Mixon NP) External hemorrhoid Cervical spinal cord compression Fibromyalgia Anxiety and depression Surgical History Hx of abdominal hysterectomy Hx of breast implant Family History Brother Gout Arthritis Sister Arthritis Maternal Grandfather Family history of brain cancer Maternal Grandmother Family history of stomach cancer Other Family history of breast cancer Social History Alcohol intake: current Alcohol intake frequency: holidays/special occasions only Patient Tobacco Use Status: Never used Tobacco Review of Systems Const All systems reviewed & are unremarkable except as noted in HPI and below Physical Exam Vital Signs: Last Vital Signs Pulse 70 11/28/24 10:58 BP 130/90 H 11/28/24 10:58 Pulse Ox 98 11/28/24 10:58 Oxygen Delivery Method Room Air 11/28/24 10:58 Const General: cooperative and no acute distress; No comfortable Nutritional Appearance: overweight Orientation/consciousness: patient oriented x3 GI Rectal Exam - Female: normal sphincter tone, External hemorrhoid(s) present (A bluish-colored painful lump just outside the anus. ), No Rectal prolapse, No Fistula present (GI) and tenderness Neuro General: patient oriented x3, gait normal and moves all extremities Psych Speech and movement: Normal speech and movement present Assessment & Plan Assessment & Plan (1) External hemorrhoid: Code(s): K64.4 - Residual hemorrhoidal skin tags Plan: Continue f/u with GI as scheduled Ordered Hydrocortisone Cream Medications: New hydrocortisone 2.5% 1 appl [place] BID-QID PRN 30 grams 0RF hemorrhoids K64.4 - Residual hemorrhoidal skin tags Coding Level of Care Code Est Pt Level 4 (37700) Diagnoses External hemorrhoid K64.4 Time Spent (min) 20
[2024-11-28 10:58] VITALS: BP 130/90; PULSE 70; O2SAT 98
== END 2024-11-28 11:19 | disposition home or self-care (01) ==
PROVIDERS: Visit Provider Nurse Practitioner Family
DX: K64.4 Residual hemorrhoidal skin tags (principal)

== ENCOUNTER → 2024-11-28 09:45 | Outpatient (BNVA) | payer OTHER, SELFPAY | DX: K64.4 Residual hemorrhoidal skin tags (principal) | CPT/HCPCS: 99212 ==